=== PATIENT | male | born 1980 | race American Indian/Alaskan Native ===

== ENCOUNTER 2018-09-17 05:47 | Day surgery (SDC) | payer OTHER ==
[2018-09-17] MEDS ORDERED: ANCEF/STERILE WATER 2 GM/20 ML 2 GM/20 ML SYRINGE IV NR (06:00)
[2018-09-17] MEDS ORDERED: NACL 0.9% 1000 ML 1,000 ML IV SCH ×3 (06:00→11:00)
[2018-09-17 06:35] LABS: Basophils # (Auto) 0.1 K/mm3 (0.0-0.1); Basophils % (Auto) 1.7 % (0.0-1.8); Eosinophils # (Auto) 0.2 K/mm3 (0.0-0.4); Eosinophils % (Auto) 4.8 % (0.0-4.3); Hematocrit 39.8 % (35.5-45.6); Hemoglobin 13.1 gm/dl (11.8-15.2); Lymphocytes # (Auto) 1.2 K/mm3 (1.2-5.4); Mean Corpuscular HGB Conc 33 % (32-34); Mean Corpuscular Volume 94 fl (84-94); Monocytes # (Auto) 0.4 K/mm3 (0.0-0.8); Platelet Count 236 K/mm3 (140-440); Red Blood Count 4.24 M/mm3 (3.65-5.03); Red Cell Distribution Width 14.6 % (13.2-15.2)
[2018-09-17 06:56] LABS: Calcium 8.9 mg/dL (8.4-10.2)
--- NOTE | 2018-09-17 07:16 | Anesthesia Consultation ---
Anesthesia Consult and Med Hx Date of service: 09/17/18 - Airway Anesthetic Teeth Evaluation: Poor (some missing teeth) ROM Head & Neck: Adequate Mental/Hyoid Distance: Adequate Mallampati Class: Class II Intubation Access Assessment: Probably Good - Pre-Operative Health Status ASA Pre-Surgery Classification: ASA3 Proposed Anesthetic Plan: General - Pulmonary Hx Smoking: Yes (Former) - Cardiovascular System Hx Hypertension: Yes (Since age 22) - Central Nervous System Hx Psychiatric Problems: No - Endocrine Hx Renal Disease: Yes Hx End Stage Renal Disease: Yes - Hematic Hx Anemia: Yes - Other Systems Hx Substance Use: Yes (Marijuana daily) Hx Cancer: No
--- NOTE | 2018-09-17 07:16 | Anesthesia Day of Surgery ---
Anesthesia Day of Surgery - Day of Surgery Patient Examined: Yes Patient H&P Reviewed: Yes Patient is NPO: Yes
[2018-09-17] MEDS ORDERED: GELFOAM TP ONE ×2 (07:19→09:20)
[2018-09-17] MEDS ORDERED: THROMBIN (BOVINE) TP ONE ×2 (07:19→09:20)
[2018-09-17] MEDS ORDERED: HEPARIN 10,000 UNITS/10 ML ONE (07:20)
[2018-09-17] MEDS ORDERED: NACL 0.9% 500 ML 500 ML ONE ×2 (07:20→10:11)
[2018-09-17] MEDS ORDERED: PAPAVERINE ONE (07:21)
[2018-09-17] MEDS ORDERED: MARCAINE 0.5% INFILTRATI ONE (07:21)
[2018-09-17] MEDS ORDERED: PROTAMINE SULFATE ONE (07:22)
[2018-09-17] MEDS ORDERED: MARCAINE-EPI 0.5%-1:200,000 INFILTRATI ONE ×2 (07:22→09:11)
[2018-09-17] MEDS ORDERED: SODIUM BICARBONATE ONE (07:23)
[2018-09-17] MEDS ORDERED: XYLOCAINE 1%/ EPI 1:100,000 INFILTRATI ONE (07:23)
[2018-09-17] MEDS ORDERED: NITROGLYCERIN SYRINGE 3 ML ONE (07:24)
[2018-09-17] MEDS ORDERED: RIFADIN ONE (07:49)
[2018-09-17] MEDS ORDERED: DILAUDID IV PRN (07:49)
[2018-09-17] MEDS ORDERED: NACL P/F VIAL (10 ML) 10 ML ONE (07:50)
[2018-09-17] MEDS ORDERED: XYLOCAINE MPF 2% ONE (07:53)
[2018-09-17] MEDS ORDERED: DIPRIVAN 10 MG/ML IV ONE (07:53)
[2018-09-17] MEDS ORDERED: PEPCID IV NR (08:00)
[2018-09-17] MEDS ORDERED: VERSED IV NR (08:00)
[2018-09-17] MEDS ORDERED: NACL 0.9% IR ONE (09:11)
[2018-09-17] MEDS ORDERED: NACL P/F VIAL (10 ML) IV ONE (09:12)
[2018-09-17] MEDS ORDERED: HEPARIN 10,000 UNITS/10 ML 2,000 UNIT in NACL 0.9% 500 ML 500 ML IR ONE (09:14)
[2018-09-17] MEDS ORDERED: RIFADIN IV ONE (09:23)
[2018-09-17] MEDS ORDERED: NITROGLYCERIN SYRINGE UD ONE (09:28)
[2018-09-17] MEDS ORDERED: ZOFRAN ONE (10:34)
--- NOTE | 2018-09-17 10:41 | Short Stay Summary ---
Short Stay Documentation Date of service: 09/17/18 - History H&P: obtained from office - Allergies and Medications Current Medications: Allergies No Known Allergies Allergy (Unverified 09/16/18 15:36) Home Medications Medication Instructions Recorded Confirmed Last Taken Type Ferric Citrate (Nf) [Auryxia (Nf)] 1 tab PO QAC 09/16/18 09/16/18 Unknown History NIFEdipine XL [Procardia Xl] 90 mg PO DAILY 09/16/18 09/17/18 09/17/18 05:00 History cloNIDine [Catapres] 0.2 mg PO DAILY 09/16/18 09/17/18 09/16/18 05:00 History Active Medications Famotidine (Pepcid) 20 mg IV PREOP NR Stop: 09/17/18 16:00 Last Admin: 09/17/18 07:58 Dose: 20 mg Documented by: Hydromorphone HCl (Dilaudid) 0.25 mg IV Q10MIN PRN PRN Reason: Pain, Moderate (4-6) Stop: 09/17/18 20:00 Cefazolin Sodium (Ancef/Sterile Water 2 Gm/20 Ml) 2 gm in 20 mls @ 80 mls/hr IV PREOP NR; Protocol Stop: 09/17/18 23:59 Sodium Chloride (Nacl 0.9% 1000 Ml) 1,000 mls @ 42 mls/hr IV DIRECT KIERSTEN Stop: 09/17/18 11:00 Sodium Chloride (Nacl 0.9% 1000 Ml) 1,000 mls @ 42 mls/hr IV DIRECT KIERSTEN Midazolam HCl (Versed) 2 mg IV PREOP NR Stop: 09/17/18 23:59 Last Admin: 09/17/18 07:58 Dose: 2 mg Documented by: - Brief post op/procedure progress note Date of procedure: 09/17/18 Pre-op diagnosis: ESRD Post-op diagnosis: same Procedure: LUE brachial artery to axiallary vein 7 mm bovine AVG Anesthesia: GETA, local Findings: Good thrill. 2+ left radial at end of case Surgeon: JAYME SCHAEFER Labeling Associate: STORM RAMAN Estimated blood loss: minimal Pathology: none Condition: stable - Hospital course Hospital course: benign - Disposition Condition at discharge: Good Disposition: DC-01 TO HOME OR SELFCARE Short Stay Discharge Plan Activity: advance as tolerated Diet: advance as tolerated Wound: per your surgeon's advice Follow up with: JAYME SCHAEFER MD [Staff Physician] - 7 Days Prescriptions: HYDROcodone/APAP 5-325 [[place] 5/325] 1 each PO Q6HR PRN #30 tablet PRN Reason: Pain
--- NOTE | 2018-09-17 10:47 | Operative Report ---
Operative Report Operative Report: Date of procedure: 09/17/2018 Pre-operative diagnosis: End-stage renal failure Post-operative diagnosis: Same Procedure name(s): Left upper extremity brachial artery to axillary vein bridge graft using 7 mm bovine graft Surgeon: Noble Mccloud MD Franchise Sales Manager: Brynn Jerome Anesthesia: General and local EBL: Less than 50 mL Operative indication: Patient is a 38 yo man with end-stage renal failure and need for long-term hemodialysis access. Findings: Excellent thrill in the arteriovenous graft at the end of the procedure. And 2+ left radial pulse. Procedure: The patient was placed on the table in the supine position. The arm was prepped with ChloraPrep solution and draped in the usual sterile fashion. Under local anesthesia, an incision was made just above the elbow. Dissection was carried out to identify the brachial artery. The brachial artery was surrounded with Vesseloops proximally and distally. The brachial artery was approximately 5 mm in diameter. A second incision was made in the axilla and dissection was carried out to identify the axillary vein. This vein was also at least 7 mm in diameter. Vessel loops were placed proximally and distally. I should note that the wounds were infiltrated with half percent Marcaine and epinephrine prior to incision. The bovine graft was prepped according to the IFU. A tunnel was created in the upper arm between the 2 incisions using a Anne-Wick tunneler. The graft was anastomosed to the axillary vein in an end to side fashion using running 6-0 Prolene. The arterial anastomosis was completed in an end-to-side fashion. The arteriotomy was approximate 5 mm in length. A Radha catheter was used to break the spasm in the brachial artery proximally and distally to the anastomosis. The anastomosis is completed and flow was started into the arteriovenous graft with the development of an immediate and excellent thrill along the body of the graft. The left radial pulse remained palpable. Meticulous hemostasis was obtained. Closure was done with 3-0 Vicryl on the subcutaneous tissues tissue and 4-0 Monocryl on the subcuticular tissue. Sterile dressings were applied. The patient tolerated the procedure well. There was an easily palpable left radial pulse at the end of the procedure. There was a good thrill in the graft at the end of the procedure. Sponge, needle, and instrument counts were reported as correct. The patient was taken from the operating room to the recovery room in stable condition.
[2018-09-17 11:42] VITALS: BP 139/91
== END 2018-09-17 05:48 | disposition home or self-care (01) ==
LOC: OR 05:47 → EDSEX 08:00
PROVIDERS: ATTEND Surgery Vascular Surgery
DX: I12.0 Hypertensive chronic kidney disease with stage 5 chronic kidney disease or end stage renal disease (principal); N18.6 End stage renal disease; D64.9 Anemia, unspecified; F17.210 Nicotine dependence, cigarettes, uncomplicated; Z79.899 Other long term (current) drug therapy; Z99.2 Dependence on renal dialysis; Z98.890 Other specified postprocedural states
CPT/HCPCS: 36415; 36830; 80048; 85025; A4649; C1757; C1768; J0690; J1170; J1644; J2250; J2405; J2704; J3490; J7030; J7040; J2440; J2720